=== PATIENT | female | born 1930 | race African-American/Black ===

== ENCOUNTER 2016-11-07 11:48 | Emergency (ER) | payer MEDICARE, OTHER ==
[~2016-11-07] VITALS: Ht 162.6 cm; Wt 77.1 kg
[~2016-11-07 11:48] MED LIST: ACET500T33 PO; ASPI-482 PO; CYAN10005 PO; DILT240C32 PO; GLIP-26 PO; HYDR-2666 PO; HYDR12.53 PO; LISI-338 PO; METF500T4 PO; MULT-658 PO; OMEG1CAP6 PO; OMEP40CA5 PO; POTA20TA82 PO; SIMV20TA3 PO
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
[2016-11-07] MEDS ORDERED: CYCL5TAB PO (13:49)
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
[2016-11-07 14:21] VITALS: BP 155/86
== END 2016-11-07 14:22 | disposition home or self-care (01) ==
LOC: ER 11:48
DX: S13.4XXA Sprain of ligaments of cervical spine, initial encounter (principal); R51 Headache; E11.9 Type 2 diabetes mellitus without complications; E78.00 Pure hypercholesterolemia, unspecified; K21.9 Gastro-esophageal reflux disease without esophagitis; I10 Essential (primary) hypertension; Z91.041 Radiographic dye allergy status; X58.XXXA Exposure to other specified factors, initial encounter; Y93.89 Activity, other specified; Y99.8 Other external cause status; Y92.89 Other specified places as the place of occurrence of the external cause
CPT/HCPCS: 70450; 72125; 99284-25

== ENCOUNTER → 2017-01-24 | Outpatient (CLI) | payer BC, MEDICARE ==
[~2017-01-24] MED LIST changes: +CYCL5TAB PO
--- NOTE | 2017-01-24 13:03 | RAD ---
Indication hypercalcemia. 22 mCi of sestamibi was administered. Images were obtained 30 minutes following the injection and 3 1/2 hours postinjection. On the delayed images no residual activity is seen in the neck to suggest a parathyroid adenoma. IMPRESSION: Negative parathyroid scan
== END | disposition home or self-care (01) ==
LOC: NM 08:42
PROVIDERS: ATTEND Internal Medicine Nephrology
DX: E83.52 Hypercalcemia (principal)
CPT/HCPCS: 78070; 96374; A9500

== ENCOUNTER → 2020-04-16 | Outpatient (CLI) | payer BC ==
[~2020-04-16] MED LIST changes: +CYAN-25 PO; -CYAN10005 PO; -HYDR-2666 PO; +HYDR-2761 PO; -HYDR12.53 PO; +HYDR12.575 PO; +METF500T16 PO; -METF500T4 PO; +OMEP40CA45 PO; -OMEP40CA5 PO; +POTA20TA4 PO; -POTA20TA82 PO; +SIMV20TA18 PO; -SIMV20TA3 PO
--- NOTE | 2020-04-16 14:18 | KCIC ---
CT HEAD WO CONTRAST Date: 04/16/2020 1:30 PM Clinical Indication: Reason: MEMORY LOSS, CONFUSION / Spl. Instructions: / History: Comparison: 11/07/2016. Technique: 5 mm axial tomographic images were obtained of the head without contrast. These were viewed on brain and bone windows. One or more of the following dose reduction techniques were utilized: Automated exposure control (AEC), Adjustment of mA and/or kV according to patient size, Use of iterative reconstruction technique such as ASiR, CT scan done according to ALARA and image gently/image wisely Findings: The brain parenchyma is normal in attenuation. No intra- or extra-axial mass or fluid collection. No acute hemorrhage. The ventricles are normal in size, shape, and morphology. The rodriguez-white matter junction is normal. The subarachnoid cisterns are patent. Mild generalized cerebral volume loss. The visualized paranasal sinuses are normal. The visualized portions of the orbits and globes are normal. The mastoid air cells are clear. The relish maker topogram shows no lytic lesion or fracture. Impression: No acute intracranial process. Mild generalized cerebral volume loss. Electronically signed by: Hira Alexander MD (04/16/2020 2:15 PM) [id number]
== END | disposition home or self-care (01) ==
LOC: KCIC CT 13:06
PROVIDERS: ATTEND Internal Medicine
DX: R41.3 Other amnesia (principal); R41.0 Disorientation, unspecified
CPT/HCPCS: 70450